=== PATIENT | male | born 1990 | race Caucasian/White ===

== ENCOUNTER 2025-01-20 22:32 | Emergency (ER) | payer MEDICAID ==
[~2025-01-20] VITALS: Ht 172.7 cm; Wt 80.0 kg
[2025-01-20 22:40] VITALS: TEMP 36.9; O2SAT 90
[2025-01-20 22:51] VITALS: BP 122/82; PULSE 68; RESP 12; O2SAT 99
[2025-01-20 23:02] LABS: BASOPHILS % 0.6 % (0.0-2.0); EOSINOPHILS % 1.7 % (0.0-5.0); HEMATOCRIT. 38.6 % (42.0-52.0); HEMOGLOBIN. 13.1 g/dL (14.0-18.0); LYMPHOCYTES % 37.8 % (20.0-50.0); MEAN CORPUSCULAR HEMOGLOBIN 29.8 pg (28.0-32.0); MEAN CORPUSCULAR HGB CONC 33.8 g/dL (31.0-37.0); MEAN CORPUSCULAR VOLUME 88.1 fL (80.0-94.0); MEAN PLATELET VOLUME 7.3 fl (7.4-10.4); MONOCYTES % 6.3 % (2.0-8.0); NEUTROPHILS % 53.6 % (40.0-76.0); PLATELET 310 x1000/uL (130-400); RED BLOOD CELL COUNT 4.38 mill/uL (4.7-6.1); RED CELL DISTRIBUTION WIDTH 15.2 % (11.6-14.6); WHITE BLOOD COUNT 6.3 x1000/uL (4.5-11.0)
[2025-01-20 23:11] LABS: CHLORIDE 107 mEq/L (98-107); POTASSIUM 3.7 mEq/L (3.5-5.1); SODIUM 143 mEq/L (136-145)
[2025-01-20 23:12] LABS: CALCIUM 9.3 mg/dL (8.7-10.4); CARBON DIOXIDE 20 mEq/L (21-32)
[2025-01-20] MEDS: SODIUM CHLORIDE 0.9% 1,000 ML IV ONE (23:15)
[2025-01-20 23:17] LABS: GLUCOSE 100 mg/dL (70-105); UREA NITROGEN BLOOD 13 mg/dL (9-23)
[2025-01-20 23:18] LABS: ETHANOL BLOOD < 10 mg/dL (<10)
[2025-01-20 23:24] LABS: TROPONIN I HIGH SENSITIVITY < 4 ng/L (3.0-53)
== END 2025-01-20 23:48 | disposition left against medical advice (07) ==
LOC: ER 22:32
DX: T58.8X1A Toxic effect of carbon monoxide from other source, accidental (unintentional), initial encounter (principal); Y92.89 Other specified places as the place of occurrence of the external cause; Y90.0 Blood alcohol level of less than 20 mg/100 ml
CPT/HCPCS: 80048; 80320; 83880; 85025; 84484; 36415; 93005; 96360; 99284; J7030; G0480